=== PATIENT | female | born 1935 | race Caucasian/White ===

== ENCOUNTER 2017-09-30 11:30 | Emergency (ER) ==
[2017-09-30 11:47] VITALS: BP 123/75; TEMP 99; BMI 35.2
--- NOTE | 2017-09-30 12:39 | ED.PDOC ---
General ED Provider: Dr. SANDHYA VUONG Chief Complaint: Fall Stated Complaint: Pain to Forehead and Rt facial/orbital region. Had arrived at [facility] and when walking inside building apparently her rt shoe stuck on the floor, she came out of the shoe falling to the floor, striking her Rt Knee, Rt shoulder and Rt side of orbit and forehead. Denies LOC, Nausea or vomiting. Minimal pain Time Seen by Physician: 11:15 Mode of Arrival: Ambulance Information Source: Patient, Family Exam Limitations: No limitations Nursing and Triage Documentation Reviewed and Agree: Yes Reviewed sepsis parameters & appropriate labs ordered?: No System Inflammatory Response Syndrome: Not Applicable Sepsis Protocol: For patient's 13 years and over: Temp is 96.8 and below OR 101 and greater Pulse >90 BPM Resp >20/minute Acutely Altered Mental Status Are patient's symptoms suggestive of a new infection, such as: -Pneumonia -Skin, Soft Tissue -Endocarditis -UTI -Bone, Joint Infection -Implantable Device -Acute Abdominal Infection -Wound Infection -Meningitis -Blood Stream Catheter Infection -Unknown System Inflammatory Response Syndrome: Not Applicable Trauma/Injury Complaint Exam - Facial Injury Complaint/Exam Location of Pain: Reports: Right, Forehead, Eyebrow, Cheek Mechanism of Injury: Reports: Trauma Onset/Duration: 1 hr Symptoms Are: Still present Onset of Pain: Reports: Immediate Initial Severity: Severe Current Severity: Moderate Location: Reports: Diffuse Character: Reports: Sharp, Dull, Throbbing Alleviating: Reports: None Aggravating: Reports: Movement Associated Signs and Symptoms: Reports: Swelling, Redness, Bruising. Denies: Headache, Loss of consciousness Related History: Denies: Similar episode Related Surgical History: Reports: None Facial Findings: Present: Swelling, Ecchymosis, Warmth, Abrasion Face Picture: 1 - Swelling and ecchymoses Review of Systems - Review Of Systems Constitutional: Reports: No symptoms Eyes: Reports: No symptoms Ears, Nose, Mouth, Throat: Reports: No symptoms Respiratory: Reports: No symptoms Cardiac: Reports: No symptoms GI: Reports: No symptoms : Reports: No symptoms Musculoskeletal: Reports: No symptoms, Joint pain (Rt Shoulder and Rt Knee) Skin: Reports: No symptoms Neurological: Reports: No symptoms Endocrine: Reports: No symptoms Hematologic/Lymphatic: Reports: No symptoms All Other Systems: Reviewed and Negative Past Medical History - Past Medical History Previously Healthy: Yes Endocrine: Reports: None Cardiovascular: Reports: None, Hypertension Respiratory: Reports: None Hematological: Reports: None Gastrointestinal: Reports: None Genitourinary: Reports: None Neuro/Psych: Reports: None Musculoskeletal: Reports: None Cancer: Reports: None Last Menstrual Period: hysterectomy - Surgical History General Surgical History: Reports: None - Family History Family History: Reports: None - Social History Smoking Status: Never smoker Hx Substance Use: No Alcohol Screening: Occasionally - Immunizations Tetanus Shot up to Date: Yes Physical Exam - Physical Exam Appearance: Well-appearing, Well-nourished, Obese Ill-appearing: None Pain Distress: Mild Eyes: LORAINE (Rt Periorbital swelling,extending into Rt Infraorbital, lat maxillary region. No deformity. Tender to touch. ), EOMI, Conjunctiva clear ENT: Ears normal, Nose normal, Oropharynx normal, Erythema (Upper eyelid OD swollen and ecchymotic. No nasal deformity) Respiratory: Airway patent, Breath sounds clear, Breath sounds equal, Respirations nonlabored Cardiovascular: RRR, Pulses normal, No rub, No murmur GI/: Soft, Nontender, No masses, Bowel sounds normal, No Organomegaly Musculoskeletal: Normal strength (bilat upper and lower extremities), ROM intact , No edema, No calf tenderness, Limited strength (Tenderness Rt Knee and Rt shoulder without deformity or ecchymoses. ) Skin: Warm, Dry, Normal color Neurological: Sensation intact, Motor intact, Reflexes intact, Cranial nerves intact, Alert, Oriented Psychiatric: Affect appropriate, Mood appropriate Interpretation - Radiology Interpretation Radiology Results: No acute changes Exam Interpreted: CT Scan Xray Comments: all scans reviewed-No acute findings Re-Evaluation - Re-Evaluation Time of Re-Evaluation: 14:45 Status: Improved Vital Signs Stable: Yes Pain Level: minimal Appearance: NAD Skin: Warm and Dry Neuro: Alert and Oriented X3 CV: RRR Critical Care Note - Critical Care Note Total Time (mins): 30 (Monitored status and reviewed imaging studies) Course - Course Orders, Labs, Meds: Orders Category Date Time Status CT CERVICAL SPINE W/O CONTRAST Stat RADS 09/30/17 12:[address] HEAD W/O CONTRAST Stat RADS 09/30/17 12:[address] KNEE RIGHT WITHOUT CONTRAST Stat RADS 09/30/17 12:[address] MAXILLOFACIAL W/O CONTRAST Stat RADS 09/30/17 12:[address] SHOULDER RIGHT W/O CONTRAST Stat RADS 09/30/17 12:35 Completed Vital Signs: Temp Pulse Resp BP Pulse Ox 09/30/17 11:31 99 F 76 16 123/75 95 Departure - Departure Time of Disposition: 15:10 Disposition: HOME SELF-CARE Discharge Problem: Contusion of right orbit, Contusion of knee, right, Contusion of shoulder, right Instructions: Contusion in Adults (ED) Condition: Good Pt referred to PMD for follow-up: Yes (See PCP in 1 week) IPMP verified?: No Additional Instructions: May take Ibuprofen or Tylenol as needed for pain Keep ice pack to area of swelling and pain Rest If develops other problems follow up here Allergies/Adverse Reactions: Allergies iron dextran complex [From Infed] Adverse Reaction (Verified 09/30/17 11:43) levofloxacin [From Levaquin] Adverse Reaction (Verified 09/30/17 11:43) morphine Adverse Reaction (Verified 09/30/17 11:43) Penicillins Adverse Reaction (Verified 09/30/17 11:43) rofecoxib [From Vioxx] Adverse Reaction (Verified 09/30/17 11:43) Home Medications: Ambulatory Orders Amlodipine Besylate [Norvasc] 5 mg PO DAILY 10/20/13 Aspirin [Aspirin EC] 81 mg PO DAILYWM 10/20/13 Bupropion HCl [Wellbutrin Sr] 150 mg PO TID 10/20/13 Cholecalciferol (Vitamin D3) [Vitamin D] 1,000 unit PO DAILY 10/20/13 Esomeprazole Magnesium [Nexium] 80 mg PO DAILY 10/20/13 Hydrocodone/Acetaminophen [Hydrocodon-Acetaminophen 5-325] 1 tab PO Q6HR PRN 03/25 Multivit-Min/FA/Lycopene/Lut [Centrum Silver Tablet] 1 each PO DAILY 10/20/13 Simvastatin 20 mg PO DAILY 10/20/13 Trazodone HCl 100 mg PO BEDTIME 10/20/13 Triamterene/Hydrochlorothiazid [Maxzide 37.5 mg-25 mg Tablet] 1 each PO DAILY Zolpidem Tartrate [Ambien] 10 mg PO BEDTIME 10/20/13 Gabapentin 400 mg PO DAILY 09/30/17 Naproxen Sodium 440 mg PO BID 09/30/17 Disposition Discussed With: Patient, Family
--- NOTE | 2017-09-30 13:30 | CT ---
EXAM: CT head without contrast. HISTORY: Initial presentation for head trauma, periorbital trauma. COMPARISON: None available. TECHNIQUE: Multiple axial images of the brain were obtained from the skull base through the vertex w ithout intravenous contrast. Multiplanar reformats were provided. FINDINGS: There is no intracranial hemorrhage or extraaxial collection. The baron-white differentiat ion is maintained without evidence for acute large vascular territory infarction. There are areas of periventricular and subcortical white matter low attenuation predominately in the frontal lobes and basal ganglia. The cortical sulci and cerebral ventricles are symmetrically enlarged. The basal cis terns are well visualized. There is no hydrocephalus, mass effect, or midline shift. Small air-flui d levels noted in the left maxillary and right sphenoid sinuses. Otherwise, the paranasal sinuses an d mastoid air cells are clear. The calvarium is intact. A moderate-sized right periorbital hematoma is noted. Globes and intraorbital structures are intact. IMPRESSION: 1. Right periorbital hematoma without acute intracranial abnormality. 2. Chronic small vessel ischemic changes and atrophy. 3. Left maxillary and right sphenoid sinusitis.
--- NOTE | 2017-09-30 13:35 | CT ---
EXAM: CT right shoulder without contrast HISTORY: Initial presentation for right shoulder trauma COMPARISON: None available TECHNIQUE: Multiple axial images of the right shoulder were obtained without intravenous contrast. Images were reformatted in the sagittal and coronal planes FINDINGS: Bones are demineralized. No fracture or dislocation detected. Severe acromioclavicular j oint space narrowing with subchondral cyst and marginal osteophyte formation noted. There is moderat e spurring at the glenohumeral joint. Subchondral cystic change seen in the humeral head at the grea ter tuberosity. No right rib fractures seen. A 1 x 0.7 cm right midlung nodule on axial image 71 is present. No rig ht pleural effusion or pneumothorax identified. Degenerative changes present throughout the spine wi th exaggerated thoracic kyphosis. IMPRESSION: 1. No fracture or dislocation. 2. Moderate to severe osteoarthritis. Findings suggest rotator cuff pathology. 3. Right midlung nodule. Follow-up chest CT in 3 months recommended for reassessment.
--- NOTE | 2017-09-30 13:37 | CT ---
Exam: CT cervical spine without intravenous contrast. Comparison: None available. Reason for exam: Trauma. FINDINGS: No acute fracture, listhesis. The vertebral body heights are well maintained. There is m ultilevel degenerative disease with intervertebral body disc space height narrowing and osteophyte fo rmation. There is exaggeration of the cervical lordotic curve. The dens is intact. Atherosclerotic disease is seen within the vasculature. No pneumothorax is seen in the partially imaged apices. Impression: 1. No obvious fracture or listhesis in the cervical spine. 2. Multilevel degenerative disease with intervertebral body disc space height narrowing and exaggera tion of the thoracic kyphotic curve.
--- NOTE | 2017-09-30 13:37 | CT ---
EXAM: CT facial bones without contrast. HISTORY: Initial presentation for right periorbital trauma. COMPARISON: None available. TECHNIQUE: Multiple axial images of the facial bones were obtained without contrast and were reforma tted in the sagittal and coronal planes. FINDINGS: Moderate right periorbital hematoma noted. Right maxillary soft tissue swelling and small hematoma also noted. Globes and intraorbital structures are intact. No facial fracture identified. Small air-fluid levels noted in the left maxillary and right sphenoid sinuses. Paranasal sinuses ar e otherwise clear. Mastoid air cells are clear. Upper cervical spine is intact. No acute intracra nial abnormality is identified. IMPRESSION: Right periorbital and maxillary hematomas without acute facial fracture.
--- NOTE | 2017-09-30 13:39 | CT ---
EXAM: CT of the right knee without contrast History: Right knee trauma. Technique: Multiplanar CT images through the right knee were obtained without the administration of IV contrast Findings: Osteopenia. No acute fracture or dislocation. Chondrocalcinosis. Moderate to severe joshua rowing of the medial compartment. Moderate narrowing of the lateral compartment. Severe narrowing o f the patellofemoral compartment. There is marginal sclerosis and osteophyte formation. Impression: 1. No acute osseous abnormality. 2. Tricompartmental osteoarthritis. 3. Chondrocalcinosis.
== END 2017-09-30 15:21 | disposition home or self-care (01) ==
LOC: EDBD 11:30 → ED 11:30
DX: S80.01XA Contusion of right knee, initial encounter (principal); S40.011A Contusion of right shoulder, initial encounter; S05.11XA Contusion of eyeball and orbital tissues, right eye, initial encounter; W01.0XXA Fall on same level from slipping, tripping and stumbling without subsequent striking against object, initial encounter; S50.312A Abrasion of left elbow, initial encounter
CPT/HCPCS: 99283